=== PATIENT | male | born 1970 ===

== ENCOUNTER 2016-08-10 10:20 | Emergency (ER) | payer SELFPAY ==
[2016-08-10 10:36] VITALS: TEMP 98
--- NOTE | 2016-08-10 11:57 | CT ---
PROCEDURE: CT Abdomen and Pelvis without contrast. HISTORY: left CVA tenderness COMPARISON: None. TECHNIQUE: Contiguous axial images of the abdomen and pelvis. No oral or IV contrast given. Coronal and Sagittal reformats generated. Please note that due to lack of intravenous and oral contrast, evaluation of soft tissue structures and bowel is limited. Radiation dose: Total exam DLP = 314.44 mGy-cm. This CT exam was performed using one or more of the following dose reduction techniques: Automated exposure control, adjustment of the mA and/or kV according to patient size, and/or use of iterative reconstruction technique. FINDINGS: LOWER THORAX: Partially visualized 3 millimeter nodule in the right middle lobe. (This is best seen on series 3, image 1). Mild bibasilar atelectatic changes noted.The heart is not enlarged. There is no significant pericardial effusion. LIVER: Unremarkable. No gross lesion or ductal dilatation. GALLBLADDER AND BILE DUCTS: Unremarkable. PANCREAS: Unremarkable. No mass. No ductal dilatation. SPLEEN: Unremarkable. No splenomegaly. ADRENALS: Unremarkable. KIDNEYS AND URETERS: Unremarkable. No stone or hydronephrosis. BLADDER: Grossly unremarkable. REPRODUCTIVE: Unremarkable. APPENDIX: Unremarkable. BOWEL: No obstruction. Concentric thickening of the rectosigmoid junction. This could be underlying lack of distention. However, mild colitis cannot be excluded. PERITONEUM: Small amount of fluid in the pelvis. This is a nonspecific however abnormal finding. LYMPH NODES: No bulky lymphadenopathy. VASCULATURE: Unremarkable. No aortic aneurysm. BONES: No fracture or destructive lesion. OTHER FINDINGS: Soft tissue swelling and a small hematoma in the subcutaneous soft tissues in the right lower quadrant. IMPRESSION: No nephroureterolithiasis. Concentric thickening of the rectosigmoid junction could be due to underlying underdistention. However mild inflammatory changes cannot be excluded. Soft tissue swelling and small hematoma in the subcutaneous soft tissues in the right lower quadrant. Small amount of fluid in the pelvis. This is a nonspecific however abnormal finding. Follow-up recommended. 3 millimeter lung nodule in the right middle lobe (partially visualized). 6-[address] recommended. Other findings as above. Discussed with BROCK Heredia at approximately 11:50 a.m..
--- NOTE | 2016-08-10 12:02 | ED PDOC ---
HPI: Abdomen Time Seen by Provider: 08/10/16 11:04 Chief Complaint (Nursing): Abdominal Pain Chief Complaint (Provider): abdominal pain History Per: Patient History/Exam Limitations: no limitations Associated Symptoms: Urinary Symptoms. denies: Fever, Chills, Nausea, Vomiting , Diarrhea, Loss Of Appetite, Back Pain, Chest Pain, Constipation Additional Complaint(s): 46yo M in ED for eval of back pain to left side and lower right quadrant swelling that tender only to tuoch x 1 week after fall injury on to pointed metal eusebia injury right side of abd. denies : nausea vomiting fever chills, denies intolerance to PO. however admits to some urinary discomfort and left sided flank pain. Past Medical History Reviewed: Historical Data, Nursing Documentation, Vital Signs Vital Signs: Last Vital Signs Temp 98 F 08/10/16 10:33 Pulse 57 L 08/10/16 10:33 Resp 18 08/10/16 10:33 BP 108/66 08/10/16 10:33 Pulse Ox 100 08/10/16 13:05 - Medical History PMH: No Chronic Diseases - Family History Family History: States: No Known Family Hx - Allergies Allergies/Adverse Reactions: Allergies Allergy/AdvReac Type Severity Reaction Status Date / Time No Known Allergies Allergy Verified 08/10/16 10:33 Review of Systems ROS Statement: Except As Marked, All Systems Reviewed And Found Negative Constitutional: Negative for: Fever, Chills Genitourinary Male: Positive for: Dysuria. Negative for: Frequency, Incontinence, Hematuria, Penile Discharge, Scrotal Pain Musculoskeletal: Positive for: Back Pain Physical Exam - Reviewed Nursing Documentation Reviewed: Yes Vital Signs Reviewed: Yes - Physical Exam Appears: Positive for: Well, Non-toxic, No Acute Distress Head Exam: Positive for: ATRAUMATIC, NORMAL INSPECTION, NORMOCEPHALIC Skin: Positive for: Normal Color, Warm, DRY Cardiovascular/Chest: Positive for: Regular Rate, Rhythm Respiratory: Positive for: CNT, Normal Breath Sounds Gastrointestinal/Abdominal: Positive for: Bowel Sounds, Soft, Tenderness ( tenderness noted to right lower quadrant superfiucal hematoma noted with bursining. no other hematoma noted. ) Back: Negative for: L CVA Tenderness, R CVA Tenderness Extremity: Positive for: Normal ROM Neurologic/Psych: Positive for: Alert, Oriented - Laboratory Results Result Diagrams: 08/10/16 11:50 08/10/16 11:50 - ECG O2 Sat by Pulse Oximetry: 100 - CT Scan/US abd/pelvis Other Rad Studies (CT/US): Radiology Report Reviewed Medical Decision Making Medical Decision Making: Pt with normal labs and CT scan however some free air in pelvic area. pt strongly advised to f.u with pmd for outpt imagining in 1week or to return to ED if with persistent pain in pelvis pt will [facility] . Disposition - Clinical Impression Clinical Impression: Abdominal pain, Hematoma - Patient ED Disposition Is Patient to be Admitted: No Counseled Patient/Family Regarding: Studies Performed, Diagnosis, Need For Followup - Disposition Disposition: Routine/Home Disposition Time: 13:05 Condition: STABLE Instructions: Hematoma (ED) Print Language: KUWAITI
[2016-08-10 12:23] LABS: RBC URINE 1 /hpf (0-3); URINE BILIRUBIN NEGATIVE (NEGATIVE); URINE BLOOD NEGATIVE (NEGATIVE); URINE COLOR STRAW (YELLOW); URINE GLUCOSE (UA) NEG (Normal); URINE KETONE NEGATIVE (NEGATIVE); URINE LEUKOCYTE ESTERASE NEG Leu/uL (Negative); URINE PROTEIN NEGATIVE (NEGATIVE); URINE UROBILINOGEN 0.2-1.0 mg/dL (0.2-1.0); WBC URINE < 1 /hpf (0-5)
[2016-08-10 12:28] LABS: BASO % 0.3 % (0.0-2.0); EOS # 0.1 K/uL (0.0-0.7); EOS % 1.4 % (0.0-4.0); HEMATOCRIT 43.8 % (35.0-51.0); LYMPH % 35.2 % (20.0-40.0); MEAN CORPUSCULAR HEMOGLOBIN 30.5 pg (27.0-31.0); MEAN CORPUSCULAR HGB CONC 33.2 g/dL (33.0-37.0); MEAN PLATELET VOLUME 9.2 fl (7.2-11.7); MONO # 0.5 K/uL (0.0-0.8); MONO % 8.2 % (0.0-10.0); NEUT # 3.2 K/uL (1.8-7.0); NEUT % 54.9 % (50.0-75.0); NRBC % 0.1 % (0.0-0.0); RED CELL DISTRIBUTION WIDTH 13.2 % (11.5-14.5); WHITE BLOOD COUNT 5.8 K/uL (4.8-10.8)
[2016-08-10 12:55] LABS: ALKALINE PHOSPHATASE 52 U/L (38-126); ALT/SGPT 30 U/L (21-72); AMYLASE 78 U/L (30-110); AST/SGOT 22 U/L (17-59); BLOOD UREA NITROGEN 12 mg/dl (9-20); CALCIUM 9.4 mg/dL (8.4-10.2); CARBON DIOXIDE 25 mmol/L (22-30); CHLORIDE 107 mmol/L (98-107); GFR AFRICAN-AMERICAN > 60; GLUCOSE,RANDOM 84 mg/dL (75-110); LIPASE 37 U/L (23-300); POTASSIUM 3.9 MMOL/L (3.6-5.0); SODIUM 141 mmol/l (132-148); TOTAL PROTEIN 6.4 G/DL (6.3-8.2)
[2016-08-10 13:17] VITALS: BP 110/70; PULSE 60; RESP 16
[2016-08-10 13:30] VITALS: O2SAT 100
== END 2016-08-10 13:17 | disposition home or self-care (01) ==
LOC: H.ER 10:20
DX: R10.9 Unspecified abdominal pain (principal); R91.1 Solitary pulmonary nodule

== ENCOUNTER 2016-10-28 09:02 | Emergency (ER) | payer OTHER, SELFPAY ==
[2016-10-28 09:10] VITALS: BP 111/68; PULSE 89; TEMP 98; O2SAT 98; BMI 20.3
--- NOTE | 2016-10-28 09:47 | ED PDOC ---
HPI: Back Time Seen by Provider: 10/28/16 09:20 Chief Complaint (Nursing): Back Pain Chief Complaint (Provider): Back Pain History Per: Patient History/Exam Limitations: no limitations Onset/Duration Of Symptoms: Days Current Symptoms Are (Timing): Still Present Additional Complaint(s): 46 y/o male presents to the emergency department for a left sided pain back that started yesterday, 10/27/2016, after he made a sudden twisting motion while painting on top of a ladder. Reports he took Motrin with minimal relief of pain. States pain worsens with movement. Denies fall, difficulty ambulating, radiation of pain, paresthesias, incontinence. PMD: Dr. Raf Mckeon MD Past Medical History Reviewed: Historical Data, Nursing Documentation, Vital Signs Vital Signs: Last Vital Signs Temp 98 F 10/28/16 09:07 Pulse 89 10/28/16 09:07 Resp BP 111/68 10/28/16 09:07 Pulse Ox 98 10/28/16 09:07 - Medical History PMH: No Chronic Diseases - Surgical History Surgical History: No Surg Hx - Family History Family History: States: Unknown Family Hx - Social History Current smoker - smoking cessation education provided: Yes (Light Smoker < 10 Cigarettes Daily) Alcohol: None Drugs: Denies - Home Medications Home Medications: Ambulatory Orders Medication Instructions Recorded Cyclobenzaprine [Cyclobenzaprine 10 mg PO TID PRN #15 tab 10/28/16 HCl] Naproxen [Naprosyn] 500 mg PO BID PRN #15 tablet 10/28/16 - Allergies Allergies/Adverse Reactions: Allergies Allergy/AdvReac Type Severity Reaction Status Date / Time No Known Allergies Allergy Verified 10/28/16 09:20 Review of Systems ROS Statement: Except As Marked, All Systems Reviewed And Found Negative Constitutional: Negative for: Other (Fall) Musculoskeletal: Positive for: Back Pain (Left-sided back pain) Physical Exam - Reviewed Nursing Documentation Reviewed: Yes Vital Signs Reviewed: Yes - Physical Exam Appears: Positive for: Non-toxic, No Acute Distress Head Exam: Positive for: ATRAUMATIC, NORMAL INSPECTION, NORMOCEPHALIC Skin: Positive for: Normal Color Eye Exam: Positive for: Normal appearance, EOMI Neck: Positive for: Normal, Supple Cardiovascular/Chest: Positive for: Regular Rate, Rhythm. Negative for: Murmur Respiratory: Positive for: Normal Breath Sounds. Negative for: Accessory Muscle Use, Respiratory Distress Gastrointestinal/Abdominal: Positive for: Normal Exam, Soft. Negative for: Tenderness Back: Positive for: Other (upper lumber tenderness ). Negative for: Normal Inspection (No deformity, or lesions noted. ) Extremity: Positive for: Normal ROM (Full ROM). Negative for: Pedal Edema Neurologic/Psych: Positive for: Alert, Oriented (x3) - ECG O2 Sat by Pulse Oximetry: 98 (RA) Pulse Ox Interpretation: Normal - Other Rad XR L-spine X-Ray: Interpreted by Me X-Ray Interpretation: Negative. Medical Decision Making Medical Decision Making: Time: 09:34 Initial impression: Back pain Initial plan: --Urine DIP --Lumbar Spine x-ray --Cyclobenzaprine 10 mg PO --Toradol 30 mg IM --Reevaluation Scribe Attestation: Documented by Hailey Roldan, acting as a scribe for Lena Somers MD. Provider Scribe Attestation: All medical record entries made by the Scribe were at my direction and personally dictated by me. I have reviewed the chart and agree that the record accurately reflects my personal performance of the history, physical exam, medical decision making, and the department course for this patient. I have also personally directed, reviewed, and agree with the discharge instructions and disposition. Disposition - Clinical Impression Clinical Impression: Back strain - Disposition Referrals: [facility] [Outside] Disposition: Routine/Home Disposition Time: 10:10 Condition: STABLE Prescriptions: Cyclobenzaprine [Cyclobenzaprine HCl] 10 mg PO TID PRN #15 tab PRN Reason: Pain Naproxen [Naprosyn] 500 mg PO BID PRN #15 tablet PRN Reason: Pain, Moderate (4-7) Instructions: Back Pain (ED) Forms: [employer] ([place]ese), [facility] ED School/Work Excuse Print Language: TAMAZIGHT
--- NOTE | 2016-10-28 17:23 | RAD ---
PROCEDURE: Radiographs of the Lumbar Spine. HISTORY: L lower back pain COMPARISON: Lumbar spine as seen on CT of the abdomen and pelvis without contrast performed 08/10/16 FINDINGS: BONES: Alignment appears satisfactory. No listhesis. No acute displaced fracture identified. DISC SPACES: Unremarkable. OTHER FINDINGS: Moderate constipation. IMPRESSION: No acute displaced fracture or subluxation identified. Moderate constipation.
== END 2016-10-28 10:45 | disposition home or self-care (01) ==
LOC: H.ER 09:02
DX: S39.012A Strain of muscle, fascia and tendon of lower back, initial encounter (principal); X50.9XXA Other and unspecified overexertion or strenuous movements or postures, initial encounter; Y92.89 Other specified places as the place of occurrence of the external cause
CPT/HCPCS: 72114; 96372; 99282; J1885

== ENCOUNTER 2017-09-15 08:15 | Emergency (ER) | payer OTHER, SELFPAY ==
[2017-09-15 08:15] VITALS: BMI 20.3
[2017-09-15] MEDS ORDERED: Hydrocortisone 1% Oint TOP STA (08:52)
--- NOTE | 2017-09-15 09:04 | ED PDOC ---
HPI: Skin/Bite Injury Time Seen by Provider: 09/15/17 08:22 Chief Complaint (Nursing): Abnormal Skin Integrity History Per: Patient History/Exam Limitations: no limitations Onset/Duration Of Symptoms: Days Current Symptoms Are (Timing): Still Present Quality Of Symptoms: Itching Severity: Mild Additional Complaint(s): 47 YO male with no sig PMHx presents to [facility] ED for rash. Pt states that he used a new lotion on Friday after which he noticed small red rash on his arms and chest. Rash has spread and sig for itchiness. Pt not has applied anything to rash or taken any PO meds for it. No PMD PMHx: denies SurgHx: L index finger surgery FH: hx of lung CA father and CAD in mother SH: 1/2 pack a day x 10+yrs, denies ETOH and illicit drug use Meds: none Allergies: NKDA Past Medical History Vital Signs: Last Vital Signs Temp 98.0 F 09/15/17 08:20 Pulse 70 09/15/17 08:20 Resp 19 09/15/17 08:20 BP 106/66 09/15/17 08:20 Pulse Ox 99 09/15/17 09:12 - Medical History PMH: No Chronic Diseases - Family History Family History: States: CAD - Social History Current smoker - smoking cessation education provided: Yes Alcohol: None Drugs: Denies - Home Medications Home Medications: Ambulatory Orders Medication Instructions Recorded Cyclobenzaprine [Cyclobenzaprine 10 mg PO TID PRN #15 tab 10/28/16 HCl] Naproxen [Naprosyn] 500 mg PO BID PRN #15 tablet 10/28/16 Cetirizine HCl [Zyrtec] 10 mg PO DAILY #10 capsule 09/15/17 - Allergies Allergies/Adverse Reactions: Allergies Allergy/AdvReac Type Severity Reaction Status Date / Time No Known Allergies Allergy Verified 10/28/16 09:20 Review of Systems Constitutional: Negative for: Fever, Chills Cardiovascular: Negative for: Chest Pain, Palpitations Respiratory: Negative for: Cough, Shortness of Breath Gastrointestinal: Negative for: Nausea, Vomiting Genitourinary Male: Negative for: Dysuria, Frequency Skin: Positive for: Rash Neurological: Negative for: Weakness, Numbness Physical Exam - Physical Exam Appears: Positive for: No Acute Distress Skin: Positive for: Normal Color, Rash (Small areas of reddish, erythetamous skin- scaly texture with areas of excoriations. Eczematous skin ) Eye Exam: Positive for: Normal appearance, EOMI Cardiovascular/Chest: Positive for: Regular Rate, Rhythm. Negative for: Murmur Respiratory: Positive for: Normal Breath Sounds. Negative for: Rales, Wheezing Gastrointestinal/Abdominal: Positive for: Normal Exam, Bowel Sounds, Soft. Negative for: Tenderness Back: Positive for: Normal Inspection. Negative for: L CVA Tenderness, R CVA Tenderness Extremity: Positive for: Normal ROM. Negative for: Tenderness Neurologic/Psych: Positive for: Alert, Oriented, Gait (normal ) - ECG O2 Sat by Pulse Oximetry: 99 - Progress ED Course And Treament: 47 YO male with skin rash. VS remain stable. -TOP hydrocortisone oint Assessment discussed with pt, likely contact dermatitis from use of new lotion. Pt educated to d/c the lotion -will d/c pt home with Hydrocortisone cream to be applied BID TOP and cetrizine 10mg po daily Disposition - Clinical Impression Clinical Impression: Dermatitis - Disposition Referrals: [facility] [Outside] Disposition Time: 09:35 Condition: FAIR Prescriptions: Cetirizine HCl [Zyrtec] 10 mg PO DAILY #10 capsule Instructions: Dermatitis, Contact Dermatitis (DC) Forms: [facility] (H[place]ian) Print Language: SINHALA
[2017-09-15 09:39] VITALS: BP 110/65; PULSE 59; RESP 16; TEMP 98.2; O2SAT 100
== END 2017-09-15 09:35 | disposition home or self-care (01) ==
LOC: H.ER 08:15
DX: L30.9 Dermatitis, unspecified (principal); Z82.49 Family history of ischemic heart disease and other diseases of the circulatory system; F17.210 Nicotine dependence, cigarettes, uncomplicated

== ENCOUNTER 2018-03-29 10:50 | Emergency (ER) | payer OTHER ==
[2018-03-29 10:54] VITALS: BMI 24.6
[2018-03-29] MEDS ORDERED: Sodium Chloride 0.9% 1,000 ML IV STA (11:23)
--- NOTE | 2018-03-29 11:53 | ED PDOC ---
HPI: Dental Pain/Injury Time Seen by Provider: 03/29/18 11:10 Chief Complaint (Nursing): Dental Pain Chief Complaint (Provider): left sided dental pain History Per: Patient History/Exam Limitations: no limitations Onset/Duration Of Symptoms: Days (x2) Current Symptoms Are (Timing): Still Present Additional Complaint(s): Beau Nassar is a 47 year old male, with no significant past medical history, who presents to the emergency department complaining of left lower dental pain onset for x2 days associated with some numbness to the area. Patient states pain is associated with left sided facial pain. He reports that his tooth cracked on its own x1 week ago. Patient did not take any medications and has not visited a dentist in x1 year. He denies any fever, chills, numbness, tingling or weakness to extremities, chest pain, shortness of breath, headache, dizziness or other medical complaints. PMD: None provided. Past Medical History Reviewed: Historical Data, Nursing Documentation, Vital Signs Vital Signs: Last Vital Signs Temp 98.3 F 03/29/18 10:53 Pulse 73 03/29/18 10:53 Resp 17 03/29/18 10:53 BP 126/82 03/29/18 10:53 Pulse Ox 100 03/29/18 10:53 - Medical History PMH: No Chronic Diseases - Surgical History Surgical History: No Surg Hx - Family History Family History: States: Unknown Family Hx, CAD - Social History Current smoker - smoking cessation education provided: Yes (Light smoker <10 cigarrettes daily) Alcohol: None Drugs: Denies - Home Medications Home Medications: Ambulatory Orders Medication Instructions Recorded Cyclobenzaprine [Cyclobenzaprine 10 mg PO TID PRN #15 tab 10/28/16 HCl] Naproxen [Naprosyn] 500 mg PO BID PRN #15 tablet 10/28/16 Cetirizine HCl [Zyrtec] 10 mg PO DAILY #10 capsule 09/15/17 Amoxicillin/Clavulanate [Augmentin 1 tab PO BID 7 Days tab 03/29/18 875 MG-125 MG] Ibuprofen [Motrin] 600 mg PO TID 7 Days tab 03/29/18 - Allergies Allergies/Adverse Reactions: Allergies Allergy/AdvReac Type Severity Reaction Status Date / Time No Known Allergies Allergy Verified 01/20/19 11:12 Review of Systems ROS Statement: Except As Marked, All Systems Reviewed And Found Negative Constitutional: Negative for: Fever, Chills ENT: Positive for: Mouth Pain (left lower dental pain with some numbness to the area) Cardiovascular: Negative for: Chest Pain Respiratory: Negative for: Shortness of Breath Neurological: Negative for: Weakness, Numbness (tingling to extremities), Headache, Dizziness Physical Exam - Reviewed Nursing Documentation Reviewed: Yes Vital Signs Reviewed: Yes - Physical Exam Appears: Positive for: No Acute Distress Head Exam: Positive for: ATRAUMATIC, NORMAL INSPECTION, NORMOCEPHALIC Skin: Positive for: Normal Color, Warm, Dry Eye Exam: Positive for: Normal appearance, EOMI, PERRL ENT: Positive for: Other (Poor dental hygiene. 3rd molar painful, missing tooth to right and left upper. Moderate tenderness to the missing tooth in left lower. Left lower face mild swelling.) Neck: Positive for: Normal, Painless ROM, Supple Cardiovascular/Chest: Positive for: Regular Rate, Rhythm. Negative for: JVD, Murmur Respiratory: Positive for: Normal Breath Sounds. Negative for: Respiratory Distress Gastrointestinal/Abdominal: Positive for: Normal Exam, Soft. Negative for: Tenderness, Guarding, Rebound Back: Positive for: Normal Inspection. Negative for: L CVA Tenderness, R CVA Tenderness, Vertebral Tenderness Extremity: Positive for: Normal ROM (upper and lower extremities). Negative for: Deformity, Swelling Neurologic/Psych: Positive for: Alert, collision estimator II-XII (intact), Oriented (x3), Cerebellar Tests (normal). Negative for: Motor/Sensory Deficits, Aphasia, Facial Droop - Laboratory Results Result Diagrams: 03/29/18 11:45 03/29/18 11:45 Lab Results: no acute - ECG ECG: Positive for: Interpreted By Me, Viewed By Me ECG Rhythm: Positive for: Normal QRS, Normal ST Segment, Sinus Rhythm O2 Sat by Pulse Oximetry: 100 (RA) Pulse Ox Interpretation: Normal - CT Scan/US ct Other Rad Studies (CT/US): Read By Radiologist Other Rad Interpretation: no acute - Progress ED Course And Treament: 1447: Stable. No acute findings. Likely paresthesias from tooth ache/infection. AAOx3. Moving all extremities and face with no issues. Medical Decision Making Medical Decision Making: Time: 11:10 Initial Impression: Dental pain Initial Plan: --Head w/o contrast [CT] --EKG --CMP --Troponin I --CBC w/ differential --ESR --Toradol 15 mg IVP --NaCl 1,000 ml IV 1,000 mls/hr --Reevaluation 12:[address] FINDINGS: HEMORRHAGE: No intracranial hemorrhage. BRAIN: No mass effect or edema. No atrophy or chronic microvascular ischemic changes. VENTRICLES: Unremarkable. No hydrocephalus. CALVARIUM: Unremarkable. PARANASAL SINUSES: Unremarkable as visualized. No significant inflammatory changes. MASTOID AIR CELLS: Unremarkable as visualized. No inflammatory changes. OTHER FINDINGS: None. IMPRESSION: No acute intracranial pathology. Scribe Attestation: Documented by Dharmesh Gomez, acting as a scribe for Williams Garrett MD Provider Scribe Attestation: All medical record entries made by the Scribe were at my direction and personally dictated by me. I have reviewed the chart and agree that the record accurately reflects my personal performance of the history, physical exam, medical decision making, and the department course for this patient. I have also personally directed, reviewed, and agree with the discharge instructions and disposition. Disposition - Clinical Impression Clinical Impression: Dental caries, Paresthesia - Patient ED Disposition Is Patient to be Admitted: No Counseled Patient/Family Regarding: Studies Performed, Diagnosis, Need For Followup, Rx Given - Disposition Referrals: [facility] [Outside] - 03/30/18 Disposition: Routine/Home Disposition Time: 12:00 Condition: STABLE Additional Instructions: See a dentist without fail in 3 days. Return if not better in 3 days. [facility] Contact Information: [address] [place] [address] - [phone] Prescriptions: Amoxicillin/Clavulanate [Augmentin 875 MG-125 MG] 1 tab PO BID 7 Days tab Ibuprofen [Motrin] 600 mg PO TID 7 Days tab Instructions: Dental Pain (DC), Paresthesias (DC) Print Language: [place]AST [place]
--- NOTE | 2018-03-29 12:26 | CT ---
Date of service: 03/29/2018 PROCEDURE: CT HEAD WITHOUT CONTRAST. HISTORY: headache COMPARISON: None available. TECHNIQUE: Axial computed tomography images were obtained through the head/brain without intravenous contrast. Radiation dose: Total exam DLP = 852.95 mGy-cm. This CT exam was performed using one or more of the following dose reduction techniques: Automated exposure control, adjustment of the mA and/or kV according to patient size, and/or use of iterative reconstruction technique. FINDINGS: HEMORRHAGE: No intracranial hemorrhage. BRAIN: No mass effect or edema. No atrophy or chronic microvascular ischemic changes. VENTRICLES: Unremarkable. No hydrocephalus. CALVARIUM: Unremarkable. PARANASAL SINUSES: Unremarkable as visualized. No significant inflammatory changes. MASTOID AIR CELLS: Unremarkable as visualized. No inflammatory changes. OTHER FINDINGS: None. IMPRESSION: No acute intracranial pathology.
[2018-03-29 12:52] LABS: BASO % 0.3 % (0.0-2.0); EOS # 0.1 K/uL (0.0-0.7); EOS % 1.7 % (0.0-4.0); HEMOGLOBIN 14.4 g/dL (12.0-18.0); MEAN CELL VOLUME 94.7 fl (80.0-94.0); MEAN CORPUSCULAR HEMOGLOBIN 31.2 pg (27.0-31.0); MEAN PLATELET VOLUME 9.4 fl (7.2-11.7); MONO # 0.9 K/uL (0.0-0.8); MONO % 10.8 % (0.0-10.0); NEUT # 4.9 K/uL (1.8-7.0); NEUT % 62.2 % (50.0-75.0); NRBC % 0.1 % (0.0-0.0); RBC 4.6 Mil/uL (4.40-5.90); RED CELL DISTRIBUTION WIDTH 13.2 % (11.5-14.5); WHITE BLOOD COUNT 7.9 K/uL (4.8-10.8)
[2018-03-29 12:59] LABS: ALB/GLOB RATIO 1.5 (1.0-2.1); ALBUMIN 3.9 g/dL (3.5-5.0); ALT/SGPT 32 U/L (21-72); AST/SGOT 22 U/L (17-59); BLOOD UREA NITROGEN 14 mg/dl (9-20); CALCIUM 9.5 mg/dL (8.4-10.2); GFR NON-AFRICAN AMERICAN > 60
[2018-03-29 15:07] VITALS: BP 112/72; PULSE 78; RESP 18; TEMP 98.4; O2SAT 98
--- NOTE | 2018-03-29 23:54 | CARD ---
APPROVED REPORT Date of service: 03/29/2018 EKG Measurement Heart [id number] <Conclusion> Normal sinus rhythm Normal ECG
== END 2018-03-29 15:12 | disposition home or self-care (01) ==
LOC: H.ER 10:50
DX: K02.9 Dental caries, unspecified (principal); R20.0 Anesthesia of skin; F17.200 Nicotine dependence, unspecified, uncomplicated; Z82.49 Family history of ischemic heart disease and other diseases of the circulatory system
CPT/HCPCS: 70450; 80053; 84484; 85025; 85651; 93005; 96361; 96374; 99284; J1885; J7030